=== PATIENT | female | born 1950 | race Hispanic/Latino ===

== ENCOUNTER 2019-03-22 12:26 | Inpatient (IN) | payer OTHER, MEDICARE ==
[~2019-03-22] VITALS: Ht 152.4 cm; Wt 93.4 kg
[~2019-03-22 12:26] MED LIST: ERGO500014 PO; ESCI10TA54 PO; ESOM40CA54 PO; FESO8TAB PO; LOSA1TAB42 PO; METF-444 PO; OMEP40CA13 PO; SIMV10TA97 PO
[2019-03-22 12:44] LABS: BASOPHILS % (AUTO) 1.2 % (0.0-5.0); EOSINOPHILS % (AUTO) 2.1 % (0.0-8.0); HEMATOCRIT 36.5 % (36-48); LYMPHOCYTES % (AUTO) 21.5 % (21.0-51.0); MEAN CORPUSCULAR HEMOGLOBIN 31.4 pg (27.0-33.0); MEAN CORPUSCULAR HGB CONC 34.3 g/dL (32.0-36.0); MEAN CORPUSCULAR VOLUME 91.4 fL (79-99); MONOCYTES % (AUTO) 5.4 % (3.0-13.0); NEUTROPHILS % (AUTO) 69.8 % (40.0-77.0); PLATELET COUNT (AUTO) 225 K/uL (130-400); RED CELL DISTRIBUTION WIDTH 14.2 % (11.0-15.5); WHITE BLOOD COUNT (AUTO) 8.7 K/uL (4.8-10.8)
[2019-03-22 12:57] LABS: CREATININE 1.3 mg/dL (0.5-1.5); POTASSIUM 3.9 mmol/L (3.5-5.1)
[2019-03-22 13:01] LABS: INR 0.99 (0.85-1.15); PARTIAL THROMBOPLASTIN TIME 23.8 SEC (26.3-35.5); PROTHROMBIN TIME 10.4 SEC (9.6-11.6)
[2019-03-22 13:02] LABS: ALBUMIN 3.2 g/dL (3.5-5.0); BILIRUBIN,TOTAL 0.7 mg/dL (0.2-1.0)
[2019-03-22] MEDS ORDERED: DILTIAZEM HCL 5 MG/ML 5 ML VIAL IVP ONE (14:08)
[2019-03-22] MEDS ORDERED: SODIUM CHLORIDE 0.9% 500ML 500 ML IV ONE (14:09)
[2019-03-22] MEDS ORDERED: SODIUM CHLORIDE 0.9% 100 ML IV ONE (14:23)
[2019-03-22] MEDS ORDERED: DILTIAZEM HCL 125 MG/25 ML VIAL IV ONE (14:24)
[2019-03-22] MEDS ORDERED: IOHEXOL 350 MG/ML 100ML INFUS..BTL IV ONE (16:29)
[2019-03-22 18:17] LABS: CREATINE KINASE, TOTAL 15 U/L (21-232); MYOGLOBIN 44 ng/mL (10-92); TROPONIN I < 0.04 ng/mL (0.00-0.06)
[2019-03-22] MEDS ORDERED: CEFTRIAXONE SODIUM 1 GM ONE (19:18)
[2019-03-22] MEDS ORDERED: AZITHROMYCIN 500MG+NS 250ML 250 ML IV ONE (19:18)
--- NOTE | 2019-03-22 20:30 | NUR ---
ADMISSION PATIENT WAS ADMITTED FROM ED. TRANSFERRED BY STRETCHER ACCOMPANIED BY SISTER AND NURSE. PATIENT WAS TRANSFERRED TO BED AND MADE COMFORTABLE. ALERT AND ORIENTED X3. NO COMPLAINTS OF PAIN AT THIS TIME. NO SIGNS OF DISTRESS. NO SHORTNESS OF BREATH. PATIENT IS TO BE ON AIRBORNE ISOLATION TO R/O TB. CURRENTLY RUNNING CARDIZEM DRIP @5MG/HR FOR AFIB WITH RVR. CALL LIGHT AND BESIDES TABLE WITHIN REACH. NO QUESTIONS, CONCERNS, OR NEEDS AT THIS TIME.
[2019-03-22 20:55] VITALS: BP 118/62
[2019-03-22 23:26] VITALS: BP 129/61
[2019-03-23 00:45] LABS: CREATINE KINASE, TOTAL 19 U/L (21-232); MYOGLOBIN 74 ng/mL (10-92); TROPONIN I < 0.04 ng/mL (0.00-0.06)
[2019-03-23 03:59] VITALS: BP 111/56
[2019-03-23] MEDS ORDERED: ALEN35TA23 PO (05:13)
[2019-03-23 06:49] LABS: CREATINE KINASE, TOTAL 37 U/L (21-232); MYOGLOBIN 54 ng/mL (10-92); TROPONIN I < 0.04 ng/mL (0.00-0.06)
[2019-03-23 08:19] VITALS: BP 131/63
[2019-03-23] MEDS: FESOTERODINE FUMARATE 8 MG PO SCH (09:00)
[2019-03-23] MEDS ORDERED: NON-FORMULARY MEDICATION 1 EACH (Omeprazole 40 MG) PO SCH (09:00)
[2019-03-23] MEDS ORDERED: ERGOCALCIFEROL (VITAMIN D2) 50,000 UNIT CAPSULE PO SCH (09:00)
[2019-03-23] MEDS ORDERED: METOPROLOL TARTRATE 1 MG/ML 5ML VIAL IV PRN (09:15)
[2019-03-23] MEDS: METOPROLOL TARTRATE 25 MG TAB PO SCH ×2 (10:24→20:21)
[2019-03-23] MEDS: ENOXAPARIN SODIUM 100 MG/1 ML SQ SCH ×2 (10:25→20:25)
[2019-03-23] MEDS: HYDROCHLOROTHIAZIDE 25 MG TABLET PO SCH (10:25)
[2019-03-23] MEDS: PANTOPRAZOLE SODIUM 40 MG TABLET.DR PO SCH (10:25)
[2019-03-23] MEDS: INSULIN HUMULIN R 100 UNIT/ML 3ML SQ SCH ×3 (11:30→20:22)
[2019-03-23 11:57] VITALS: BP 113/62
[2019-03-23 16:17] VITALS: BP 115/57
--- NOTE | 2019-03-23 17:13 | NUR ---
DC PLAN INDEPENDENT, LIVES ALONE, PROVIDER DAILY FOR 5HR THEN 4HR ON THE WEEKEND, HAS WALKER, CANE, WHEELCHAIR. PER PATIENT, FEELS SAFE TO RETURN HOME. Addendum: 03/23/19 at 1714 by NATALI RAO Amended: Links added.
[2019-03-23 19:34] VITALS: BP 130/70
[2019-03-23] MEDS: SIMVASTATIN 10 MG TABLET PO SCH (20:21)
[2019-03-23] MEDS: CITALOPRAM 20 MG TABLET PO SCH (22:04)
[2019-03-23] MEDS: PHARMACY COMMUNICATION MISC SCH (22:06)
[2019-03-23 23:43] VITALS: BP 125/67
[2019-03-24 04:20] LABS: HEMATOCRIT 30.2 % (36-48); MEAN CORPUSCULAR HEMOGLOBIN 31.7 pg (27.0-33.0); MEAN CORPUSCULAR HGB CONC 34.4 g/dL (32.0-36.0); MEAN CORPUSCULAR VOLUME 92.2 fL (79-99); PLATELET COUNT (AUTO) 176 K/uL (130-400); RED BLOOD CELL COUNT(AUTO) 3.27 MIL/uL (4.00-5.50); WHITE BLOOD COUNT (AUTO) 6.2 K/uL (4.8-10.8)
[2019-03-24 04:23] LABS: CREATININE 1.3 mg/dL (0.5-1.5); POTASSIUM 3.5 mmol/L (3.5-5.1)
[2019-03-24 04:30] LABS: INR 1.02 (0.85-1.15); PROTHROMBIN TIME 10.7 SEC (9.6-11.6)
[2019-03-24 04:42] VITALS: BP 105/44
[2019-03-24] MEDS: PANTOPRAZOLE SODIUM 40 MG TABLET.DR PO SCH (06:21)
[2019-03-24] MEDS: INSULIN HUMULIN R 100 UNIT/ML 3ML SQ SCH ×4 (06:29→21:00)
[2019-03-24 07:35] VITALS: BP 126/58
[2019-03-24] MEDS: HYDROCHLOROTHIAZIDE 25 MG TABLET PO SCH (09:00)
[2019-03-24] MEDS: LOSARTAN 100 MG TABLET PO SCH (09:00)
[2019-03-24] MEDS: METOPROLOL TARTRATE 25 MG TAB PO SCH ×2 (09:00→13:28)
[2019-03-24] MEDS: FESOTERODINE FUMARATE 8 MG PO SCH (09:00)
[2019-03-24] MEDS ORDERED: LOSARTAN 100 MG TABLET PO SCH (09:00)
[2019-03-24] MEDS: PHARMACY COMMUNICATION MISC SCH ×3 (09:30→16:32)
[2019-03-24 12:06] VITALS: BP 150/97
--- NOTE | 2019-03-24 12:12 | NUR ---
RECEIVED CALL FROM [employer], THIS NURSE INFORMED PT. PREVIOUSLY CONVERTED TO AFIB-110'S.
--- NOTE | 2019-03-24 12:33 | NUR ---
NOTIFIED ENDOSCOPY, SPOKE WITH Faye BILLY, RN, PT. CONVERTED TO AFIB-110'S. VERBALIZED UNDERSTANDING AND STATES WILL NOTIFY DR. Jacquelin CASTILLO.
[2019-03-24] MEDS ORDERED: LOSARTAN 50 MG TABLET ONE (13:25)
--- NOTE | 2019-03-24 13:25 | NUR ---
INFORMED PT. BRONCHOSCOPY CANCELLED DUE TO AFIB CONVERSION PER GERIATRIC ASSISTANT. PT. IN GOOD SPIRITS, STATES," YES, I GET TO EAT." SCHEDULED MEDICATIONS ADMINISTERED. LUNCH PROVIDED.
[2019-03-24 15:22] VITALS: BP 134/64
--- NOTE | 2019-03-24 18:21 | NUR ---
INFORMED DR. Troy HENDRIX WITH PT. WITH PREVIOUS EPISODE OF ASYMPTOMATIC CARDIAC PAUSE, 6 SECONDS. ORDERS RECEIVED.
[2019-03-24 19:32] VITALS: BP 127/75
--- NOTE | 2019-03-24 19:49 | NUR ---
NOTIFIED DR. Troy HENDRIX RE:PT. WITH REPEAT EPISODE OF CARDIAC PAUSE-7 SECONDS, VERBALIZED UNDERSTANDING. NO NEW ORDERS RECEIVED AT THIS TIME. STATES CONTINUE WITH ORDERED MULTAQ AND BETA-VIVEK.
[2019-03-24] MEDS: DRONEDARONE HYDROCHLORIDE 400 MG TABLET PO SCH (21:52)
[2019-03-24] MEDS: SIMVASTATIN 10 MG TABLET PO SCH (21:52)
[2019-03-24] MEDS: METOPROLOL TARTRATE 50 MG TAB PO SCH (21:53)
[2019-03-24] MEDS: CITALOPRAM 20 MG TABLET PO SCH (22:25)
[2019-03-25] VITALS (7 sets, daily range): BP systolic 96–127; BP diastolic 47–61
[2019-03-25 04:33] LABS: HEMATOCRIT 32.8 % (36-48); MEAN CORPUSCULAR HEMOGLOBIN 31.4 pg (27.0-33.0); MEAN CORPUSCULAR HGB CONC 34.4 g/dL (32.0-36.0); MEAN CORPUSCULAR VOLUME 91.2 fL (79-99); NUCLEATED RED BLOOD CELLS 0.1 % (0.0-0.19); PLATELET COUNT (AUTO) 187 K/uL (130-400); WHITE BLOOD COUNT (AUTO) 6.3 K/uL (4.8-10.8)
[2019-03-25 04:53] LABS: CREATININE 1.2 mg/dL (0.5-1.5); POTASSIUM 3.4 mmol/L (3.5-5.1)
[2019-03-25] MEDS: PANTOPRAZOLE SODIUM 40 MG TABLET.DR PO SCH (06:31)
[2019-03-25] MEDS: INSULIN HUMULIN R 100 UNIT/ML 3ML SQ SCH ×4 (06:31→21:00)
[2019-03-25] MEDS: FESOTERODINE FUMARATE 8 MG PO SCH (09:00)
[2019-03-25] MEDS: LOSARTAN 100 MG TABLET PO SCH (10:27)
[2019-03-25] MEDS: METOPROLOL TARTRATE 50 MG TAB PO SCH ×3 (10:27→21:41)
[2019-03-25] MEDS: HYDROCHLOROTHIAZIDE 25 MG TABLET PO SCH (10:27)
[2019-03-25] MEDS: DRONEDARONE HYDROCHLORIDE 400 MG TABLET PO SCH ×2 (10:27→21:00)
[2019-03-25] MEDS ORDERED: LIDOCAINE HCL-MPF 1% 2ML VIAL IV PRN (15:00)
[2019-03-25] MEDS ORDERED: POTASSIUM CHLORIDE 10% ELIXIR 20 MEQ/15 ML UDCUP PO PRN (15:00)
[2019-03-25] MEDS ORDERED: POTASSIUM CHLORIDE 20MEQ/100ML 100 ML IV PRN (15:00)
[2019-03-25] MEDS: POTASSIUM CHLORIDE 20 MEQ ERTAB PO PRN ×2 (16:03→17:30)
--- NOTE | 2019-03-25 21:00 | NUR ---
missed medication dose reason for missed multaq dose, pharmacy was called before leaving on needing multaq and not available in [facility]. as per pharmacy they would addres . Upon cheking [facility] no multaq available. mushroom growing supervisor was called and no multaq available in hospital.
[2019-03-25] MEDS: CITALOPRAM 20 MG TABLET PO SCH (21:41)
[2019-03-25] MEDS: SIMVASTATIN 10 MG TABLET PO SCH (21:42)
[2019-03-26] VITALS (7 sets, daily range): BP systolic 86–133; BP diastolic 43–78
[2019-03-26 03:49] LABS: HEMATOCRIT 29.8 % (36-48); MEAN CORPUSCULAR HEMOGLOBIN 31.5 pg (27.0-33.0); MEAN CORPUSCULAR HGB CONC 34.1 g/dL (32.0-36.0); MEAN CORPUSCULAR VOLUME 92.1 fL (79-99); PLATELET COUNT (AUTO) 169 K/uL (130-400); RED BLOOD CELL COUNT(AUTO) 3.23 MIL/uL (4.00-5.50); RED CELL DISTRIBUTION WIDTH 13.8 % (11.0-15.5); WHITE BLOOD COUNT (AUTO) 7.2 K/uL (4.8-10.8)
[2019-03-26 03:56] LABS: CREATININE 1.7 mg/dL (0.5-1.5); MAGNESIUM 1.6 mg/dL (1.80-2.40); POTASSIUM 4.2 mmol/L (3.5-5.1)
[2019-03-26 04:00] LABS: INR 0.99 (0.85-1.15); PARTIAL THROMBOPLASTIN TIME 27.1 SEC (26.3-35.5); PROTHROMBIN TIME 10.4 SEC (9.6-11.6)
[2019-03-26] MEDS: INSULIN HUMULIN R 100 UNIT/ML 3ML SQ SCH ×4 (04:37→21:00)
[2019-03-26] MEDS: PANTOPRAZOLE SODIUM 40 MG TABLET.DR PO SCH (04:37)
[2019-03-26] MEDS ORDERED: MAGNESIUM 2GM PREMIX 50ML 50 ML IV PRN (04:45)
[2019-03-26] MEDS: FESOTERODINE FUMARATE 8 MG PO SCH (09:00)
[2019-03-26] MEDS ORDERED: METOPROLOL TARTRATE 25 MG TAB ONE (11:07)
[2019-03-26] MEDS: HYDROCHLOROTHIAZIDE 25 MG TABLET PO SCH (11:09)
[2019-03-26] MEDS: DRONEDARONE HYDROCHLORIDE 400 MG TABLET PO SCH ×2 (11:09→21:44)
[2019-03-26] MEDS: METOPROLOL TARTRATE 50 MG TAB PO SCH ×2 (11:10→21:44)
[2019-03-26] MEDS ORDERED: LOSARTAN 50 MG TABLET ONE (11:11)
[2019-03-26] MEDS: LOSARTAN 100 MG TABLET PO SCH (11:11)
[2019-03-26] MEDS: SIMVASTATIN 10 MG TABLET PO SCH (21:44)
[2019-03-26] MEDS: CITALOPRAM 20 MG TABLET PO SCH (21:44)
[2019-03-27] VITALS (28 sets, daily range): BP systolic 76–163; BP diastolic 29–90
[2019-03-27 04:52] LABS: BASOPHILS % (AUTO) 1.2 % (0.0-5.0); EOSINOPHILS % (AUTO) 3.3 % (0.0-8.0); HEMATOCRIT 30.1 % (36-48); MEAN CORPUSCULAR HEMOGLOBIN 30.9 pg (27.0-33.0); MEAN CORPUSCULAR HGB CONC 33.7 g/dL (32.0-36.0); MEAN CORPUSCULAR VOLUME 91.6 fL (79-99); MONOCYTES % (AUTO) 6.3 % (3.0-13.0); NEUTROPHILS % (AUTO) 61.2 % (40.0-77.0); PLATELET COUNT (AUTO) 198 K/uL (130-400); RED BLOOD CELL COUNT(AUTO) 3.28 MIL/uL (4.00-5.50); RED CELL DISTRIBUTION WIDTH 14.2 % (11.0-15.5)
[2019-03-27 05:05] LABS: CREATININE 1.6 mg/dL (0.5-1.5); MAGNESIUM 2.1 mg/dL (1.80-2.40); PHOSPHORUS 3.6 mg/dL (2.5-4.9)
[2019-03-27] MEDS: INSULIN HUMULIN R 100 UNIT/ML 3ML SQ SCH ×4 (05:39→21:00)
[2019-03-27] MEDS: PANTOPRAZOLE SODIUM 40 MG TABLET.DR PO SCH (05:39)
[2019-03-27] MEDS: HYDROCHLOROTHIAZIDE 25 MG TABLET PO SCH (09:00)
[2019-03-27] MEDS: METOPROLOL TARTRATE 50 MG TAB PO SCH ×2 (09:00→20:36)
[2019-03-27] MEDS: FESOTERODINE FUMARATE 8 MG PO SCH (09:00)
[2019-03-27] MEDS: DRONEDARONE HYDROCHLORIDE 400 MG TABLET PO SCH ×2 (09:00→20:36)
[2019-03-27] MEDS ORDERED: DEXAMETHASONE SOD PHOSPHATE 10MG/ML 1ML VIAL ONE (12:52)
[2019-03-27] MEDS ORDERED: LIDOCAINE PF 2% 5ML ABBOJECT ONE (12:52)
[2019-03-27] MEDS ORDERED: ONDANSETRON HCL 4 MG/2 ML VIAL ONE (12:53)
[2019-03-27] MEDS ORDERED: MIDAZOLAM HCL 1 MG/ML 2ML VIAL ONE (12:53)
[2019-03-27] MEDS ORDERED: PROPOFOL 10 MG/ML 20ML VIAL IV ONE ×2 (12:53→13:11)
[2019-03-27] MEDS ORDERED: FENTANYL CITRATE PF 50 MCG/1 ML 2ML VIAL ONE (12:55)
[2019-03-27] MEDS ORDERED: GLYCOPYRROLATE 1 MG/5 ML SYRINGE ONE (13:10)
[2019-03-27] MEDS ORDERED: EPINEPHRINE 1 MG/ML AMPULE ONE (13:20)
[2019-03-27] MEDS ORDERED: EPHEDRINE SULFATE 50 MG/ML AMPULE ONE (13:21)
[2019-03-27] MEDS ORDERED: ESMOLOL HCL 10 MG/ML 10 ML VIAL ONE (13:44)
--- NOTE | 2019-03-27 14:50 | NUR ---
FOX FROM TELE CALLED TO NOTIFY PT IN [id number] BP=87/47 THEN DM=315/47 DENIES ANY FEELINGS OF SLUGGISH OR TIREDNESS WHEN ASKED. NOTIFIED HENOK FUENTES. ORDERS FOR 500ML NS BOLUS. BEGIN INFUSING 160ML IN AND BP CHECKED CRBIMTFL=474/72 MANUAL JH=986/90 IEGA=756 NOTIFIED HENOK. THIS MARKETING GRAPHICS SPECIALIST TO NOTIFY DR. CHARIS HENDRIX
--- NOTE | 2019-03-27 15:40 | NUR ---
PAGED SHERRY NORWOOD REGARDING AFIB NO CALL BACK
--- NOTE | 2019-03-27 15:46 | NUR ---
PAGENasim HENDRIX REGARDING AFIB TO ANSWERING SERVICE Addendum: 03/27/19 at 1547 by CHARLEY BARRETT RN [phone]
[2019-03-27] MEDS ORDERED: DRONEDARONE HYDROCHLORIDE 400 MG TABLET PO SCH (16:00)
[2019-03-27] MEDS ORDERED: METOPROLOL TARTRATE 25 MG TAB PO SCH (16:00)
[2019-03-27 17:10] LABS: GLUCOSE,BODY FLUID 12 mg/dL (1-40)
[2019-03-27 18:14] LABS: BF EOSINOPHIL 5 %; BF LYMPHOCYTE 48 %; BF MONOCYTE 3 %
[2019-03-27] MEDS ORDERED: SODIUM CHLORIDE 0.9% 500ML 500 ML IV SCH (18:30)
[2019-03-27 18:33] LABS: APPEARANCE BODY FLUID BLOODY (CLEAR); COLOR,BODY FLUID RED (LT YELLOW); SPECIMENTYPE,BODY FLUID WASHINGS
[2019-03-27 18:34] LABS: BODY FLUID WBC 222 /cu. mm.; TOTAL VOLUME,BODY FLUID 30 mL
[2019-03-27 18:35] LABS: BODY FLUID RBC 94500 /cu. mm.
[2019-03-27 18:36] LABS: PH, BODY FLUID 7
[2019-03-27] MEDS: SIMVASTATIN 10 MG TABLET PO SCH (20:35)
[2019-03-27] MEDS: CITALOPRAM 20 MG TABLET PO SCH (20:36)
[2019-03-28 03:31] VITALS: BP 95/49
--- NOTE | 2019-03-28 04:06 | NUR ---
pt with 2-3 sec pause, pt responds appropriately, denies discomfort. no distress noted. pt resting quietly
[2019-03-28] MEDS: PANTOPRAZOLE SODIUM 40 MG TABLET.DR PO SCH (06:38)
[2019-03-28] MEDS: INSULIN HUMULIN R 100 UNIT/ML 3ML SQ SCH ×4 (06:39→21:00)
[2019-03-28 07:26] VITALS: BP 102/45
[2019-03-28] MEDS: FESOTERODINE FUMARATE 8 MG PO SCH (09:00)
[2019-03-28] MEDS ORDERED: ENOXAPARIN SODIUM 1 MG/KG SQ SCH (09:00)
[2019-03-28] MEDS: METOPROLOL TARTRATE 50 MG TAB PO SCH ×2 (09:10→21:03)
[2019-03-28] MEDS: LOSARTAN 100 MG TABLET PO SCH (09:10)
[2019-03-28] MEDS: DRONEDARONE HYDROCHLORIDE 400 MG TABLET PO SCH ×2 (09:10→21:06)
[2019-03-28] MEDS: HYDROCHLOROTHIAZIDE 25 MG TABLET PO SCH (09:10)
[2019-03-28] MEDS: ENOXAPARIN SODIUM 100 MG/1 ML SQ SCH ×2 (09:33→21:03)
[2019-03-28] MEDS ORDERED: TUBERCULIN, PURIFIED PROTEIN DERIVATIVE 5 TU/0.1 ML SYG ID SCH (10:00)
[2019-03-28 11:36] VITALS: BP 101/49
--- NOTE | 2019-03-28 14:21 | NUR ---
RD NOTIFICATION Dx: New Onset Afib. Hx: DM, Hyperlipidemia, HTN, Gastritis, CHF. Diet: 75gmCCD. Po intake 75% and has good appetite. As per EMR pt with 0% intake however, Pt stated she will not eat if she does not like the food, but other than that she is eating well. LBM: 03/27. No nausea, emesis, diarrhea at this time. RD consults due to LOS X 6. RD recommends continue current diet, add Heart Healthy and GI Soft/Cayey to diet order. RD will continue to monitor and follow up as needed. Lona Hahn MS, DIANA Addendum: 03/28/19 at [address] Amended: Links added.
[2019-03-28 15:05] VITALS: BP 85/42
[2019-03-28 19:18] VITALS: BP 101/55
[2019-03-28] MEDS: SIMVASTATIN 10 MG TABLET PO SCH (21:03)
[2019-03-28] MEDS: CITALOPRAM 20 MG TABLET PO SCH (21:04)
[2019-03-29 00:43] VITALS: BP 87/51
[2019-03-29 03:56] LABS: BASOPHILS % (AUTO) 0.5 % (0.0-5.0); HEMATOCRIT 28.3 % (36-48); LYMPHOCYTES % (AUTO) 16.8 % (21.0-51.0); MEAN CORPUSCULAR HEMOGLOBIN 31.7 pg (27.0-33.0); MEAN CORPUSCULAR HGB CONC 34.2 g/dL (32.0-36.0); MEAN CORPUSCULAR VOLUME 92.7 fL (79-99); MONOCYTES % (AUTO) 8.4 % (3.0-13.0); NEUTROPHILS % (AUTO) 73.3 % (40.0-77.0); PLATELET COUNT (AUTO) 169 K/uL (130-400); RED BLOOD CELL COUNT(AUTO) 3.06 MIL/uL (4.00-5.50); RED CELL DISTRIBUTION WIDTH 14.2 % (11.0-15.5); WHITE BLOOD COUNT (AUTO) 7.9 K/uL (4.8-10.8)
[2019-03-29 04:03] LABS: CREATININE 1.7 mg/dL (0.5-1.5); POTASSIUM 3.7 mmol/L (3.5-5.1)
[2019-03-29 04:27] VITALS: BP 91/57
[2019-03-29] MEDS: INSULIN HUMULIN R 100 UNIT/ML 3ML SQ SCH (06:56)
[2019-03-29 07:17] VITALS: BP 87/47
[2019-03-29] MEDS: METOPROLOL TARTRATE 50 MG TAB PO SCH (08:00)
[2019-03-29] MEDS: DRONEDARONE HYDROCHLORIDE 400 MG TABLET PO SCH (08:00)
[2019-03-29] MEDS: PANTOPRAZOLE SODIUM 40 MG TABLET.DR PO SCH (08:00)
[2019-03-29] MEDS: HYDROCHLOROTHIAZIDE 25 MG TABLET PO SCH (08:00)
[2019-03-29] MEDS: FESOTERODINE FUMARATE 8 MG PO SCH (08:01)
[2019-03-29] MEDS: LOSARTAN 100 MG TABLET PO SCH (08:01)
[2019-03-29] MEDS: ENOXAPARIN SODIUM 100 MG/1 ML SQ SCH (08:01)
[2019-03-29] MEDS ORDERED: METO50 PO ×2 (10:35→14:34)
[2019-03-29] MEDS ORDERED: LOSA100T2 PO ×2 (10:35→14:34)
[2019-03-29] MEDS ORDERED: APIX5TAB PO ×2 (10:35→14:34)
[2019-03-29] MEDS ORDERED: HYDR25TA PO ×2 (10:35→14:34)
[2019-03-29] MEDS ORDERED: DRON400T2 PO ×2 (10:35→14:34)
[2019-03-29 11:09] VITALS: BP 108/51
== END 2019-03-29 15:11 | disposition home or self-care (01) | DRG 291 ==
LOC: EDH 12:26 → EDHIP 15:40 → 2AH 19:09
PROVIDERS: ADMIT Internal Medicine Critical Care Medicine; ATTEND Internal Medicine Critical Care Medicine
PROC: 0B9G8ZX Drainage of Left Upper Lung Lobe, Via Natural or Artificial Opening Endoscopic, Diagnostic (ICD-10-PCS; principal; 2019-03-27)
DX: I13.0 Hypertensive heart and chronic kidney disease with heart failure and stage 1 through stage 4 chronic kidney disease, or unspecified chronic kidney disease (principal); J18.1 Lobar pneumonia, unspecified organism; I50.33 Acute on chronic diastolic (congestive) heart failure; J44.0 Chronic obstructive pulmonary disease with (acute) lower respiratory infection; I48.0 Paroxysmal atrial fibrillation; E87.6 Hypokalemia; I11.0 Hypertensive heart disease with heart failure; K21.9 Gastro-esophageal reflux disease without esophagitis; E11.22 Type 2 diabetes mellitus with diabetic chronic kidney disease; E78.5 Hyperlipidemia, unspecified; K76.0 Fatty (change of) liver, not elsewhere classified; M81.0 Age-related osteoporosis without current pathological fracture; N18.3 Chronic kidney disease, stage 3 (moderate); F32.9 Major depressive disorder, single episode, unspecified; F41.9 Anxiety disorder, unspecified; E83.42 Hypomagnesemia; I34.0 Nonrheumatic mitral (valve) insufficiency; Z82.49 Family history of ischemic heart disease and other diseases of the circulatory system; Z79.899 Other long term (current) drug therapy; Z79.84 Long term (current) use of oral hypoglycemic drugs
CPT/HCPCS: 31622; 31628; 36415; 71045; 71275; 76000; 80048; 80053; 82550; 82945; 82948; 83615; 83735; 83874; 83880; 83986; 84100; 84157; 84443; 84484; 85025; 85027; 85378; 85610; 85730; 87040; 87071; 87077; 87101; 87116; 87186; 87205; 87206; 88108; 88305; 88312; 89051; 93005; 93306; 99291; G0378; J0171; J0456; J0696; J1100; J1650; J1815; J2001; J2250; J2405; J2704; J3010; J3475; J3490; J7040; Q9967

== ENCOUNTER 2019-09-02 18:20 | Emergency (ER) | payer OTHER, MEDICARE ==
[~2019-09-02 18:20] MED LIST changes: +ALEN35TA23 PO; +APIX5TAB PO; +DRON400T2 PO; +HYDR25TA PO; +LOSA100T2 PO; -LOSA1TAB42 PO; +METO50 PO
[2019-09-02] MEDS ORDERED: ONDANSETRON HCL 4 MG/2 ML VIAL ONE (18:45)
[2019-09-02 19:14] LABS: BASOPHILS % (AUTO) 0.9 % (0.0-5.0); HEMATOCRIT 36.6 % (36-48); MEAN CORPUSCULAR HEMOGLOBIN 29.4 pg (27.0-33.0); MEAN CORPUSCULAR HGB CONC 33.1 g/dL (32.0-36.0); MEAN CORPUSCULAR VOLUME 89.1 fL (79-99); MONOCYTES % (AUTO) 5.6 % (3.0-13.0); NEUTROPHILS % (AUTO) 64.2 % (40.0-77.0); PLATELET COUNT (AUTO) 261 K/uL (130-400); RED BLOOD CELL COUNT(AUTO) 4.11 MIL/uL (4.00-5.50); RED CELL DISTRIBUTION WIDTH 14.6 % (11.0-15.5); WHITE BLOOD COUNT (AUTO) 6.6 K/uL (4.8-10.8)
[2019-09-02 19:26] LABS: CREATININE 1.6 mg/dL (0.5-1.5); POTASSIUM 3.9 mmol/L (3.5-5.1)
[2019-09-02 19:28] LABS: INR 0.92 (0.85-1.15); PARTIAL THROMBOPLASTIN TIME 28.4 SEC (26.3-35.5)
[2019-09-02 19:30] LABS: ALBUMIN 3.1 g/dL (3.5-5.0); BILIRUBIN,TOTAL 0.3 mg/dL (0.2-1.0); TOTAL PROTEIN, SERUM 6.8 g/dL (6.0-8.3)
[2019-09-02 19:37] LABS: B-TYPE NATRIURETIC PEPTIDE 144 pg/mL (0-100)
[2019-09-02] MEDS ORDERED: 0.9% SODIUM CHLORIDE 500 ML IV BAG IV ONE (19:57)
== END 2019-09-02 20:56 | disposition home or self-care (01) ==
LOC: EDH 18:20
DX: R11.2 Nausea with vomiting, unspecified (principal); I48.20 Chronic atrial fibrillation, unspecified; N28.9 Disorder of kidney and ureter, unspecified; E11.9 Type 2 diabetes mellitus without complications; E78.5 Hyperlipidemia, unspecified; I10 Essential (primary) hypertension; I25.2 Old myocardial infarction; F41.9 Anxiety disorder, unspecified; Z90.49 Acquired absence of other specified parts of digestive tract; Z86.73 Personal history of transient ischemic attack (TIA), and cerebral infarction without residual deficits
CPT/HCPCS: 36415; 71045; 80053; 82550; 83880; 84484; 85025; 85610; 85730; 93005; 96361; 96374; 99285; J2405; J7040

== ENCOUNTER → 2019-10-04 | Outpatient (CLI) | payer OTHER, MEDICARE ==
[~2019-10-04] MED LIST changes: -ALEN35TA23 PO; +ALEN35TA51 PO
== END | disposition home or self-care (01) ==
LOC: RAH 12:26
PROVIDERS: ATTEND Family Medicine
DX: J44.9 Chronic obstructive pulmonary disease, unspecified (principal); I51.7 Cardiomegaly
CPT/HCPCS: 71250

== ENCOUNTER 2020-08-21 22:36 | Inpatient (IN) | payer OTHER, MEDICARE ==
[~2020-08-21] VITALS: Ht 152.4 cm; Wt 93.3 kg
[~2020-08-21 22:36] MED LIST changes: -ALEN35TA51 PO; +ALEN35TA53 PO; -DRON400T2 PO; +DRON400T7 PO; +ESCI-8 PO; -ESCI10TA54 PO; -OMEP40CA13 PO; +OMEP40CA21 PO
[2020-08-21 23:07] LABS: EOSINOPHILS % (AUTO) 2.8 % (0.0-8.0); HEMATOCRIT 34.3 % (36-48); LYMPHOCYTES % (AUTO) 25.4 % (21.0-51.0); MEAN CORPUSCULAR HEMOGLOBIN 30.7 pg (27.0-33.0); MEAN CORPUSCULAR HGB CONC 33.5 g/dL (32.0-36.0); MEAN CORPUSCULAR VOLUME 91.5 fL (79-99); MONOCYTES % (AUTO) 6.4 % (3.0-13.0); NEUTROPHILS % (AUTO) 64.1 % (40.0-77.0); PLATELET COUNT (AUTO) 212 K/uL (130-400); RED BLOOD CELL COUNT(AUTO) 3.75 MIL/uL (4.00-5.50); RED CELL DISTRIBUTION WIDTH 14.4 % (11.0-15.5); WHITE BLOOD COUNT (AUTO) 7.2 K/uL (4.8-10.8)
[2020-08-21 23:20] LABS: CREATININE 1.1 mg/dL (0.5-1.5); POTASSIUM 3.8 mmol/L (3.5-5.1)
[2020-08-21 23:24] LABS: BILIRUBIN,TOTAL 0.4 mg/dL (0.2-1.0); INR 1.04 (0.85-1.15); PROTHROMBIN TIME 11.3 SEC (9.6-11.6); TOTAL PROTEIN, SERUM 6.9 g/dL (6.0-8.3)
[2020-08-21 23:25] LABS: PARTIAL THROMBOPLASTIN TIME 31.4 SEC (26.3-35.5)
[2020-08-22 00:06] LABS: APPEARANCE,URINE Clear (CLEAR); BILIRUBIN,URINE Negative (NEGATIVE); COLOR,URINE Yellow (YELLOW); GLUCOSE, URINE (UA) Negative (NEGATIVE); KETONES,URINE Negative (NEGATIVE); LEUKOCYTE ESTERASE ,URINE Small (NEGATIVE); NITRATE,URINE Negative (NEGATIVE); OCCULT BLOOD,URINE Trace (NEGATIVE); PH,URINE 5.5 (5.0-8.0); PROTEIN,URINE Negative (NEGATIVE)
[2020-08-22 00:19] LABS: RBC,URINE 0-1 /HPF (0-1)
[2020-08-22 00:20] LABS: BACTERIA,URINE Few /HPF (None Seen)
[2020-08-22] MEDS ORDERED: ACETAMINOPHEN 325 MG TAB PO PRN ×2 (02:45→09:30)
[2020-08-22] MEDS ORDERED: GUAIFENESIN-DM 200/20 MG 10 ML PO PRN ×2 (02:45→09:30)
[2020-08-22] MEDS ORDERED: ACETAMINOPHEN 650 MG SUPPOSITORY RC PRN ×2 (02:45→09:30)
[2020-08-22] MEDS ORDERED: ENOXAPARIN SODIUM 60 MG/0.6 ML SQ ONE (02:46)
[2020-08-22] MEDS ORDERED: CEFTRIAXONE 1G VIAL ONE (02:47)
[2020-08-22] MEDS ORDERED: AZITHROMYCIN 500MG+NS 250ML 250 ML IV ONE (02:47)
[2020-08-22] MEDS ORDERED: DEXAMETHASONE SOD PHOSPHATE 10MG/ML 1ML VIAL ONE (02:47)
[2020-08-22] MEDS: INSULIN HUMULIN R 100 UNIT/ML 3ML SQ SCH ×4 (07:30→21:39)
[2020-08-22] MEDS: ENOXAPARIN SODIUM 40 MG/0.4 ML SYRINGE SQ SCH (09:00)
[2020-08-22] MEDS ORDERED: ONDANSETRON 4MG INJ IVP PRN (09:30)
[2020-08-22] MEDS ORDERED: LABETALOL 20MG SYG IV PRN (09:30)
[2020-08-22] MEDS ORDERED: TEMAZEPAM 7.5 MG CAPSULE PO PRN (09:30)
[2020-08-22] MEDS ORDERED: DOCUSATE SODIUM 100 MG CAP PO PRN (09:45)
[2020-08-22] MEDS ORDERED: IOHEXOL-350 50ML VIAL IV ONE (09:48)
[2020-08-22] MEDS ORDERED: CEFTRIAXONE 1G VIAL IVP SCH (15:00)
[2020-08-22] MEDS: SOLU-MEDROL 40MG VIAL IVP SCH ×2 (15:46→15:47)
[2020-08-22] MEDS: LEVOFLOXACIN 500 MG/D5W 100 ML 100 ML IV SCH (15:46)
[2020-08-22 16:00] VITALS: BP 155/75
[2020-08-22] MEDS: ZOSYN 3.375GM+NS 50ML 50 ML IV SCH ×2 (16:58→21:42)
[2020-08-22 19:00] VITALS: BP 148/68
[2020-08-22 23:00] VITALS: BP 140/67
[2020-08-23] MEDS: SOLU-MEDROL 40MG VIAL IVP SCH (02:37)
[2020-08-23 03:00] VITALS: BP 142/65
[2020-08-23 04:55] LABS: BASOPHILS % (AUTO) 0.1 % (0.0-5.0); EOSINOPHILS % (AUTO) 1.9 % (0.0-8.0); HEMATOCRIT 32.6 % (36-48); MEAN CORPUSCULAR HEMOGLOBIN 30.7 pg (27.0-33.0); MEAN CORPUSCULAR VOLUME 90.3 fL (79-99); MONOCYTES % (AUTO) 1.5 % (3.0-13.0); NEUTROPHILS % (AUTO) 87.2 % (40.0-77.0); PLATELET COUNT (AUTO) 178 K/uL (130-400); RED BLOOD CELL COUNT(AUTO) 3.61 MIL/uL (4.00-5.50); WHITE BLOOD COUNT (AUTO) 7.8 K/uL (4.8-10.8)
[2020-08-23 05:11] LABS: ALBUMIN 2.9 g/dL (3.5-5.0); BILIRUBIN,TOTAL 0.4 mg/dL (0.2-1.0); CRP QUANTITATIVE 7.2 mg/L (0.00-9.0); POTASSIUM 4.6 mmol/L (3.5-5.1); TOTAL PROTEIN, SERUM 6.8 g/dL (6.0-8.3)
[2020-08-23] MEDS: ZOSYN 3.375GM+NS 50ML 50 ML IV SCH ×2 (05:37→13:15)
[2020-08-23] MEDS: INSULIN HUMULIN R 100 UNIT/ML 3ML SQ SCH ×2 (06:25→12:14)
[2020-08-23] MEDS ORDERED: PREDNISONE 20 MG TABLET ONE (08:16)
[2020-08-23] MEDS: ENOXAPARIN SODIUM 40 MG/0.4 ML SYRINGE SQ SCH (08:28)
[2020-08-23 09:00] VITALS: BP_SYST 112; BP_SYST 142; BP_DIAS 59; BP_DIAS 65
[2020-08-23] MEDS ORDERED: FAMOTIDINE 20MG VIAL IV SCH (09:00)
[2020-08-23] MEDS ORDERED: ENOXAPARIN SODIUM 40 MG/0.4 ML SYRINGE SQ SCH (09:00)
[2020-08-23] MEDS ORDERED: PREDNISONE 20 MG TABLET PO SCH (09:00)
[2020-08-23] MEDS: LEVOFLOXACIN 500 MG/D5W 100 ML 100 ML IV SCH (10:00)
[2020-08-23 12:00] VITALS: BP 126/57
[2020-08-23] MEDS ORDERED: PRED20TA3 PO (15:16)
[2020-08-23] MEDS ORDERED: LEVO750T46 PO (15:16)
[2020-08-23 16:00] VITALS: BP 130/62
== END 2020-08-23 15:59 | disposition home or self-care (01) | DRG 191 ==
LOC: EDH 22:36 → OBSVTOIN 08-22 02:35 → EDHIP 08-22 02:35 → 2AH 08-22 04:21
PROVIDERS: ADMIT Internal Medicine Critical Care Medicine; ATTEND Internal Medicine Critical Care Medicine
DX: J47.1 Bronchiectasis with (acute) exacerbation (principal); N39.0 Urinary tract infection, site not specified; J18.9 Pneumonia, unspecified organism; J47.0 Bronchiectasis with acute lower respiratory infection; Z20.822 Contact with and (suspected) exposure to COVID-19; E11.9 Type 2 diabetes mellitus without complications; I10 Essential (primary) hypertension; E78.5 Hyperlipidemia, unspecified; F41.9 Anxiety disorder, unspecified; R53.81 Other malaise; I25.2 Old myocardial infarction; Z86.73 Personal history of transient ischemic attack (TIA), and cerebral infarction without residual deficits; Z90.49 Acquired absence of other specified parts of digestive tract
CPT/HCPCS: 36415; 71045; 71270; 80053; 81001; 82550; 82728; 82948; 83615; 83880; 84145; 84484; 85025; 85378; 85610; 85730; 86140; 86850; 86900; 86901; 87426; 93005; G0378; J0456; J0696; J1100; J1650; J1815; J1956; J2543; J2920; J3490; Q9967; U0003

== ENCOUNTER → 2020-10-10 | Outpatient (CLI) | payer OTHER, MEDICARE ==
[~2020-10-10] MED LIST changes: +ALEN35TA51 PO; -ALEN35TA53 PO; +LEVO750T46 PO; +OMEP40CA13 PO; -OMEP40CA21 PO; +PRED20TA3 PO
== END | disposition home or self-care (01) ==
LOC: SHCH 15:53
PROVIDERS: ATTEND Internal Medicine Cardiovascular Disease
DX: R06.09 Other forms of dyspnea (principal); I48.0 Paroxysmal atrial fibrillation; R07.9 Chest pain, unspecified
CPT/HCPCS: 93306; 93356

== ENCOUNTER 2021-02-26 01:08 | Observation (INO) | payer OTHER, MEDICARE ==
[~2021-02-26 01:08] MED LIST changes: -ALEN35TA51 PO; +ALEN35TA53 PO; -OMEP40CA13 PO; +OMEP40CA21 PO
[2021-02-26 01:57] LABS: BASOPHILS % (AUTO) 0.7 % (0.0-5.0); EOSINOPHILS % (AUTO) 0.9 % (0.0-8.0); HEMATOCRIT 35.7 % (36-48); LYMPHOCYTES % (AUTO) 9.9 % (21.0-51.0); MEAN CORPUSCULAR HEMOGLOBIN 29.9 pg (27.0-33.0); MEAN CORPUSCULAR HGB CONC 33.3 g/dL (32.0-36.0); MEAN CORPUSCULAR VOLUME 89.7 fL (79-99); MONOCYTES % (AUTO) 6.4 % (3.0-13.0); NEUTROPHILS % (AUTO) 81.6 % (40.0-77.0); PLATELET COUNT (AUTO) 211 K/uL (130-400); RED BLOOD CELL COUNT(AUTO) 3.98 MIL/uL (4.00-5.50); RED CELL DISTRIBUTION WIDTH 13.3 % (11.0-15.5); WHITE BLOOD COUNT (AUTO) 9.2 K/uL (4.8-10.8)
[2021-02-26 02:01] LABS: CREATININE 1.3 mg/dL (0.5-1.5); POTASSIUM 4.6 mmol/L (3.5-5.1)
[2021-02-26 02:05] LABS: BILIRUBIN,TOTAL 0.5 mg/dL (0.2-1.0); TOTAL PROTEIN, SERUM 6.6 g/dL (6.0-8.3)
[2021-02-26] MEDS ORDERED: AZITHROMYCIN 500MG VIAL IVPB ONE (04:00)
[2021-02-26] MEDS ORDERED: 0.9% NACL 250ML IVPB ONE (04:00)
[2021-02-26] MEDS ORDERED: CEFTRIAXONE 1G VIAL IVP ONE (04:00)
[2021-02-26] MEDS ORDERED: AZITHROMYCIN 500MG+NS 250ML 250 ML IV ONE (04:09)
[2021-02-26] MEDS ORDERED: CEFTRIAXONE 1G VIAL ONE (04:09)
[2021-02-26] MEDS ORDERED: ERGO500093 PO (04:54)
[2021-02-26] MEDS ORDERED: TOLT4CAP27 PO (04:54)
[2021-02-26] MEDS ORDERED: ALEN35TA53 PO (04:54)
[2021-02-26] MEDS ORDERED: BACL5TAB PO (04:54)
[2021-02-26] MEDS ORDERED: ESCI-8 PO (04:54)
[2021-02-26] MEDS ORDERED: LOSA100T58 PO (04:54)
[2021-02-26] MEDS ORDERED: PRED5TAB PO (04:54)
[2021-02-26] MEDS ORDERED: CLONIDINE HCL 0.1 MG TABLET PO PRN (05:00)
[2021-02-26] MEDS ORDERED: ONDANSETRON 4MG INJ IVP PRN (05:00)
[2021-02-26] MEDS ORDERED: MORPHINE 2 MG SYG IVP PRN (05:00)
[2021-02-26] MEDS ORDERED: TEMAZEPAM 15 MG CAPSULE PO PRN (05:00)
[2021-02-26] MEDS ORDERED: ACETAMINOPHEN 650 MG SUPPOSITORY RC PRN (05:00)
[2021-02-26] MEDS ORDERED: LACTULOSE 20 GM/30 ML UDCUP PO PRN (05:00)
[2021-02-26] MEDS ORDERED: ACETAMINOPHEN 325 MG TAB PO PRN (05:00)
[2021-02-26] MEDS: INSULIN HUMULIN R 100 UNIT/ML 3ML SQ SCH ×3 (07:30→16:30)
[2021-02-26 07:55] LABS: HEMOGLOBIN A1C 6.6 % (4.0-6.0)
[2021-02-26] MEDS ORDERED: CITALOPRAM 20 MG TABLET PO SCH (09:00)
[2021-02-26] MEDS ORDERED: ENOXAPARIN SODIUM 40 MG/0.4 ML SYRINGE SQ SCH (09:00)
[2021-02-26] MEDS ORDERED: METOPROLOL TARTRATE 50 MG TAB PO SCH (09:00)
[2021-02-26] MEDS ORDERED: LOSARTAN 100 MG TABLET PO SCH (09:00)
[2021-02-26] MEDS ORDERED: POLYETHYLENE GLYCOL 3350 17 GM POWD.PACK PO SCH (09:00)
[2021-02-26] MEDS ORDERED: ASPIRIN 81MG CHEW TAB PO SCH (09:00)
[2021-02-26] MEDS ORDERED: PANTOPRAZOLE 40 MG TAB DR PO SCH (09:00)
[2021-02-26] MEDS ORDERED: LOSARTAN 50 MG TABLET ONE (10:09)
[2021-02-26] MEDS ORDERED: AZITHROMYCIN 250 MG TABLET PO SCH (11:30)
[2021-02-26] MEDS ORDERED: CEFTRIAXONE 1G VIAL IVP SCH (11:30)
[2021-02-26] MEDS ORDERED: KETOROLAC 15MG/ML VIAL (15MG/ML) IV PRN (12:00)
[2021-02-26] MEDS: IPRATROPIUM 0.5 MG/2.5 ML INH IH SCH ×3 (12:00→18:00)
[2021-02-26 20:09] VITALS: BP 125/70
[2021-02-26] MEDS ORDERED: SIMVASTATIN 10 MG TABLET PO SCH (21:00)
[2021-02-26] MEDS ORDERED: TOLTERODINE 4 MG PO SCH (21:00)
== END 2021-02-26 19:44 | disposition left against medical advice (07) ==
LOC: EDH 01:08 → EDHIP 04:50
PROVIDERS: ADMIT Internal Medicine Critical Care Medicine; ATTEND Internal Medicine Critical Care Medicine
DX: R07.89 Other chest pain (principal); J18.9 Pneumonia, unspecified organism; M54.5 Low back pain; E78.5 Hyperlipidemia, unspecified; K21.9 Gastro-esophageal reflux disease without esophagitis; I10 Essential (primary) hypertension; E11.9 Type 2 diabetes mellitus without complications; F41.8 Other specified anxiety disorders; E78.00 Pure hypercholesterolemia, unspecified; Z79.899 Other long term (current) drug therapy; Z86.73 Personal history of transient ischemic attack (TIA), and cerebral infarction without residual deficits; Z79.01 Long term (current) use of anticoagulants
CPT/HCPCS: 36415; 71045; 71250; 80053; 82550 ×3; 82948 ×2; 83036; 83874 ×3; 83880; 84443; 84484 ×4; 85025; 85378; 86480; 93005; 94640; 94664; 96365; 96366; 96372; 96375; 96376; 99285; G0378 ×15; J0456; J0696 ×2; J1650

== ENCOUNTER 2022-05-29 22:54 | Observation (INO) | payer OTHER, MEDICARE ==
[~2022-05-29] VITALS: Ht 152.4 cm; Wt 94.6 kg
[~2022-05-29 22:54] MED LIST changes: +BACL5TAB PO; -ERGO500014 PO; +ERGO500093 PO; -LEVO750T46 PO; +LEVO750T68 PO; -LOSA100T2 PO; +LOSA100T58 PO; -PRED20TA3 PO; +PRED5TAB PO; +TOLT4CAP27 PO
[2022-05-29] MEDS ORDERED: NITROGLYCERIN 0.4 MG SL TAB SL ONE (23:08)
[2022-05-29] MEDS ORDERED: KETOROLAC 15MG/ML VIAL (15MG/ML) ONE (23:08)
[2022-05-29 23:14] LABS: BASOPHILS % (AUTO) 0.8 % (0.0-5.0); EOSINOPHILS % (AUTO) 2.2 % (0.0-8.0); HEMATOCRIT 37.4 % (36-48); LYMPHOCYTES % (AUTO) 25.3 % (21.0-51.0); MEAN CORPUSCULAR HEMOGLOBIN 30.5 pg (27.0-33.0); MEAN CORPUSCULAR HGB CONC 33.2 g/dL (32.0-36.0); MEAN CORPUSCULAR VOLUME 92.1 fL (79-99); MONOCYTES % (AUTO) 6.7 % (3.0-13.0); NEUTROPHILS % (AUTO) 64.4 % (40.0-77.0); PLATELET COUNT (AUTO) 192 K/uL (130-400); RED BLOOD CELL COUNT(AUTO) 4.06 MIL/uL (4.00-5.50); WHITE BLOOD COUNT (AUTO) 7.2 K/uL (4.8-10.8)
[2022-05-29 23:30] LABS: CREATININE 1.7 mg/dL (0.5-1.5); POTASSIUM 3.8 mmol/L (3.5-5.1)
[2022-05-29] MEDS ORDERED: NITROGLYCERIN 1GM OINT 1 INCH/1GM TD ONE (23:30)
[2022-05-29] MEDS ORDERED: NITROGLYCERIN 0.4 MG SL TAB SL PRN (23:30)
[2022-05-29] MEDS ORDERED: ONDANSETRON 4MG INJ IVP ONE (23:30)
[2022-05-29] MEDS ORDERED: KETOROLAC 15MG/ML VIAL (15MG/ML) IV ONE (23:30)
[2022-05-29 23:35] LABS: ALBUMIN 3.4 g/dL (3.5-5.0); TOTAL PROTEIN, SERUM 6.7 g/dL (6.0-8.3)
[2022-05-30] MEDS ORDERED: LIDOCAINE HCL 2% VISCOUS 15 ML UDCUP PO ONE
[2022-05-30] MEDS ORDERED: MAG/ALUM/SIMETH 30 ML UDCUP PO ONE
[2022-05-30 00:03] LABS: APPEARANCE,URINE CLOUDY (CLEAR); BILIRUBIN,URINE NEGATIVE (NEGATIVE); COLOR,URINE YELLOW (YELLOW); GLUCOSE, URINE (UA) NEGATIVE (NEGATIVE); KETONES,URINE NEGATIVE (NEGATIVE); LEUKOCYTE ESTERASE ,URINE 500 Leu/uL (NEGATIVE); NITRATE,URINE NEGATIVE (NEGATIVE); OCCULT BLOOD,URINE LARGE (NEGATIVE); PH,URINE 5.5 (5.0-8.0); PROTEIN,URINE 30 mg/dL (NEGATIVE)
[2022-05-30 00:09] LABS: MUCUS,URINE RARE LPF (None Seen); OTHER CASTS, URINE 1 /LPF (None Seen); SQUAMOUS EPITHELIAL CELL,UR FEW /HPF (0-2)
[2022-05-30 00:10] LABS: BACTERIA,URINE Moderate /HPF (None Seen)
[2022-05-30 00:11] LABS: AMPHET/METH SCREEN,URINE NEGATIVE (NEGATIVE); BARBITURATE SCREEN, URINE NEGATIVE (NEGATIVE); BENZODIAZEPINES SCREEN,URINE NEGATIVE (NEGATIVE); CANNABINOID SCREEN,URINE NEGATIVE (NEGATIVE); COCAINE SCREEN,URINE NEGATIVE (NEGATIVE); OPIATE SCREEN,URINE NEGATIVE (NEGATIVE); PHENCYCLIDINE SCREEN,URINE NEGATIVE (NEGATIVE)
[2022-05-30] MEDS ORDERED: CEFTRIAXONE 1G VIAL IVP STA (01:02)
[2022-05-30] MEDS ORDERED: ACETAMINOPHEN 650 MG SUPPOSITORY RC PRN (03:30)
[2022-05-30] MEDS ORDERED: DOCUSATE SODIUM 100 MG CAP PO PRN (03:30)
[2022-05-30] MEDS ORDERED: ACETAMINOPHEN 325 MG TAB PO PRN (03:30)
[2022-05-30] MEDS ORDERED: CLONIDINE HCL 0.1 MG TABLET PO PRN (03:30)
[2022-05-30] MEDS ORDERED: HYDRALAZINE 20MG/ML VIAL IV PRN (03:30)
[2022-05-30] MEDS ORDERED: ONDANSETRON 4MG INJ IVP PRN (03:30)
[2022-05-30] MEDS ORDERED: LABETALOL 20MG SYG IV PRN (03:30)
[2022-05-30] MEDS ORDERED: TEMAZEPAM 15 MG CAPSULE PO PRN (03:30)
[2022-05-30] MEDS ORDERED: LACTULOSE 20 GM/30 ML UDCUP PO PRN (03:30)
[2022-05-30] MEDS ORDERED: KCL 20 MEQ ERTAB PO PRN (04:30)
[2022-05-30] MEDS ORDERED: POTASSIUM CHLORIDE 10% ELIXIR 20 MEQ/15 ML UDCUP PO PRN (04:30)
[2022-05-30] MEDS ORDERED: LIDOCAINE HCL-MPF 1% 2ML VIAL IV PRN (04:30)
[2022-05-30] MEDS ORDERED: DEXTROSE 50%-WATER 50 ML DISP.SYRIN IV PRN (04:30)
[2022-05-30] MEDS ORDERED: MAGNESIUM 2GM PREMIX 50ML 50 ML IV PRN (04:30)
[2022-05-30] MEDS ORDERED: GLUCAGON 1MG KIT 1 MG ML IM PRN (04:30)
[2022-05-30] MEDS ORDERED: POTASSIUM CHLORIDE 10MEQ/100ML 100 ML IV PRN (04:30)
[2022-05-30 05:18] LABS: HEMOGLOBIN A1C 6.4 % (4.0-6.0)
[2022-05-30] MEDS: INSULIN HUMULIN R 100 UNIT/ML 3ML SQ SCH ×4 (07:30→21:10)
[2022-05-30] MEDS ORDERED: IPRATROPIUM 0.5 MG/2.5 ML INH IH PRN (08:30)
[2022-05-30] MEDS: ASPIRIN 81MG CHEW TAB PO SCH (08:54)
[2022-05-30] MEDS ORDERED: ENOXAPARIN SODIUM 40 MG/0.4 ML SYRINGE SQ SCH (09:00)
[2022-05-30 10:08] VITALS: BP 140/93
[2022-05-30] MEDS ORDERED: DOCUSATE SODIUM 100 MG CAP PO SCH (11:00)
[2022-05-30 11:57] VITALS: BP 142/60
[2022-05-30] MEDS: METOCLOPRAMIDE 10 MG/2 ML VIAL IVP SCH ×2 (12:11→19:50)
[2022-05-30] MEDS: CEFTRIAXONE 1G VIAL IVP SCH (12:12)
[2022-05-30 16:00] VITALS: BP 133/87
[2022-05-30] MEDS ORDERED: BACLOFEN 10 MG TABLET PO PRN (18:30)
[2022-05-30] MEDS ORDERED: BACLOFEN 10 MG PO PRN (18:30)
[2022-05-30] MEDS ORDERED: ENOXAPARIN SODIUM 100 MG/1 ML SQ SCH (19:00)
[2022-05-30] MEDS: PANTOPRAZOLE 40 MG/VIAL IVP SCH (19:50)
[2022-05-30 20:00] VITALS: BP 144/59
[2022-05-30] MEDS ORDERED: SIMVASTATIN 10 MG TABLET PO SCH (21:00)
[2022-05-30] MEDS: METOPROLOL TARTRATE 50 MG TAB PO SCH (21:08)
[2022-05-31] VITALS: BP_SYST 112; BP_SYST 131; BP_DIAS 56; BP_DIAS 67
[2022-05-31 04:00] VITALS: BP 105/50
[2022-05-31 04:41] LABS: BASOPHILS % (AUTO) 0.9 % (0.0-5.0); EOSINOPHILS % (AUTO) 2.4 % (0.0-8.0); HEMATOCRIT 33.6 % (36-48); LYMPHOCYTES % (AUTO) 12.5 % (21.0-51.0); MEAN CORPUSCULAR HEMOGLOBIN 30.7 pg (27.0-33.0); MEAN CORPUSCULAR HGB CONC 32.7 g/dL (32.0-36.0); MEAN CORPUSCULAR VOLUME 93.9 fL (79-99); MONOCYTES % (AUTO) 8.2 % (3.0-13.0); NEUTROPHILS % (AUTO) 75.6 % (40.0-77.0); PLATELET COUNT (AUTO) 152 K/uL (130-400); RED BLOOD CELL COUNT(AUTO) 3.58 MIL/uL (4.00-5.50); RED CELL DISTRIBUTION WIDTH 13.6 % (11.0-15.5); WHITE BLOOD COUNT (AUTO) 4.6 K/uL (4.8-10.8)
[2022-05-31 04:58] LABS: CREATININE 1.2 mg/dL (0.5-1.5); MAGNESIUM 1.9 mg/dL (1.80-2.40); PHOSPHORUS 2.8 mg/dL (2.5-4.9); POTASSIUM 4.4 mmol/L (3.5-5.1)
[2022-05-31] MEDS: INSULIN HUMULIN R 100 UNIT/ML 3ML SQ SCH ×2 (06:47→11:30)
[2022-05-31] MEDS: METOCLOPRAMIDE 10 MG/2 ML VIAL IVP SCH ×2 (06:50→12:43)
[2022-05-31 07:30] VITALS: BP 119/63
[2022-05-31] MEDS ORDERED: POLYETHYLENE GLYCOL 3350 17 GM POWD.PACK PO SCH (09:00)
[2022-05-31] MEDS ORDERED: NON-FORMULARY MEDICATION 1 EACH (Escitalopram Oxalate 10 MG) PO SCH (09:00)
[2022-05-31] MEDS ORDERED: ESCITALOPRAM 10MG PO SCH (09:00)
[2022-05-31] MEDS: ASPIRIN 81MG CHEW TAB PO SCH (09:28)
[2022-05-31] MEDS: PANTOPRAZOLE 40 MG/VIAL IVP SCH (09:28)
[2022-05-31] MEDS: METOPROLOL TARTRATE 50 MG TAB PO SCH (09:30)
[2022-05-31 11:20] VITALS: BP 107/58
[2022-05-31] MEDS: CEFTRIAXONE 1G VIAL IVP SCH (12:44)
[2022-05-31] MEDS ORDERED: BISACODYL 10 MG SUPP.RECT RC ONE (15:00)
[2022-05-31 15:50] VITALS: BP 113/63
[2022-05-31] MEDS ORDERED: AMOX1TAB16 PO (16:29)
[2022-05-31] MEDS ORDERED: POLY17PO4 PO (16:29)
[2022-05-31] MEDS ORDERED: PANTOPRAZOLE 40 MG/VIAL IVP SCH (21:00)
[2022-06-06] MEDS ORDERED: ALENDRONATE SODIUM 35 MG TAB PO SCH (06:30)
== END 2022-05-31 16:50 | disposition home or self-care (01) ==
LOC: EDH 22:54 → EDHIP 05-30 02:57 → 4AH 05-30 09:24
PROVIDERS: ADMIT Internal Medicine Pulmonary Disease; ATTEND Internal Medicine Pulmonary Disease
DX: N30.00 Acute cystitis without hematuria (principal); Z20.822 Contact with and (suspected) exposure to COVID-19; E86.9 Volume depletion, unspecified; N17.9 Acute kidney failure, unspecified; E11.65 Type 2 diabetes mellitus with hyperglycemia; I10 Essential (primary) hypertension; E78.5 Hyperlipidemia, unspecified; I48.91 Unspecified atrial fibrillation; K43.9 Ventral hernia without obstruction or gangrene; F41.9 Anxiety disorder, unspecified; Z86.73 Personal history of transient ischemic attack (TIA), and cerebral infarction without residual deficits; Z79.01 Long term (current) use of anticoagulants; Z79.899 Other long term (current) drug therapy
CPT/HCPCS: 96375 ×2; 99285; 84484 ×2; 80053; 80305; 83690; 85025 ×2; 87804 ×2; 36415 ×3; 87635; 71045; 93005; 96376 ×2; 96372; 96365; 96366; 83036; 84443; 83880; 85378; 87088; 82948 ×7; 81001; 74150; 71250; 93880; 83735; 84100; 80048; 93306; C9803; J2405 ×2; J1885; G0378 ×36; J0696 ×4; J1650 ×2; C9113 ×2; J2765 ×4; J1815; J3475